=== PATIENT | female | born 1970 | race Caucasian/White ===

== ENCOUNTER 2017-01-19 13:24 | Emergency (ER) | payer OTHER ==
[~2017-01-19] VITALS: Ht 160 cm; Wt 100.0 kg
[2017-01-19] MEDS ORDERED: HYDR50TA94 PO (13:51)
[2017-01-19] MEDS ORDERED: CELE200C PO (13:51)
[2017-01-19] MEDS ORDERED: MONT10TA4 PO (13:51)
[2017-01-19] MEDS ORDERED: FLUO60TA PO (13:51)
[2017-01-19] MEDS ORDERED: AMIT25TA9 PO (13:51)
[2017-01-19] MEDS ORDERED: GABA300C5 PO (13:51)
[2017-01-19] MEDS ORDERED: LAMO100T PO (13:51)
[2017-01-19] MEDS ORDERED: ATOR20TA15 PO (13:51)
[2017-01-19 14:05] VITALS: BP 138/66; PULSE 81; RESP 18; TEMP 97.5; O2SAT 96
--- NOTE | 2017-01-19 14:36 | PD ---
History of Present Illness Chief Complaint: Psychiatric Symptoms Time Seen by Provider: 14:30 Travel History International Travel<30 Days: No Contact w/Intl Traveler<30days: No Known affected area: No Legal Status Legal Status: Suresh Act Suresh Act Signed By: Keith Boles History of Present Illness: This is a 46-year-old female with multiple medical problems and chronic mood swings, recently diagnosed as bipolar type II. Patient apparently overdosed on Xanax and muscle relaxant medication with thoughts of killing herself and possibly a suicide note. Patient does admit to the overdose but states she got stressed out with her boyfriend and her multiple medical issues. She admits to chronic symptoms of depression and intermittent suicidal thinking. She recently had to change psychiatrist because she moved. Her new psychiatrist put her on amitriptyline and she feels this has made her feel worse as well as exacerbating her irritable bowel syndrome and diverticulitis. She also reports a fatty liver for which she takes supplements. She has chronic back pain for which she was taking Cymbalta but has more recently been placed on Neurontin and Prozac. Her boyfriend remains intrusive and controlling and the combination of her medical issues, relationship issues and chronic mood disorder became overwhelming yesterday. This physician discussed possibly admitting the patient to the hospital but she understands that we'll only create a short term environment where they will change the medicines. She would like to return to her outpatient physician to change her medicines. PFSH Past Medical History Depression: Yes High Cholesterol: Yes Diabetes: Yes (DIET CONTROLLED) Patient Takes Glucophage: No Diverticulitis: Yes ?: Not Past Surgical History Tonsillectomy: Yes (ADENOIDECTOMY) Other Surgery: Yes (DEVIATED SEPTUM CORRECTION, LAP BAND PLACEMENT/REMOVAL) Psychiatric History Psychiatric History Hx Psychiatric Treatment: Previous psychiatric treatment by multiple psychiatrists. History of Inpatient Treatment: Yes Guns or firearms in home: No Social History Hx Alcohol Use: No Hx Tobacco Use: Yes Hx Substance Use: Yes Substance Use Type: Alcohol Hx of Substance Use Treatment: No Allergies-Medications (Allergen,Severity, Reaction): Coded Allergies: Penicillin (Verified Allergy, Unknown, 01/19/17) Sulfa (Verified Allergy, Unknown, 01/19/17) Reported Meds & Prescriptions Reported Meds & Active Scripts Active Reported Celebrex (Celecoxib) 200 Mg Cap 200 Mg PO BID Gabapentin 300 Mg Cap 300 Mg PO TID Montelukast (Montelukast Sodium) 10 Mg Tab 10 Mg PO HS Atorvastatin (Atorvastatin Calcium) 20 Mg Tab 20 Mg PO HS Fluoxetine (Fluoxetine HCl) 60 Mg Tab 60 Mg PO DAILY Lamotrigine 100 Mg Tab 100 Mg PO BID Hydroxyzine HCl 50 Mg Tab 100 Mg PO HS Amitriptyline (Amitriptyline HCl) 25 Mg Tab 25 Mg PO HS Review of Systems Except as stated in HPI: all other systems reviewed are Neg Exam Alert: Yes [place]: Person, Place, Date, Situation Mood: Anxious Affect: Restricted Speech: Clear, Logical Eye Contact: Normal Memory Intact: Immediate, Recent, Remote Insight/Judgement Impaired but adequate. MDM Medical Decision Making Medical Record Reviewed: Yes Assessment/Plan Patient to be released home per her request and Suresh act being lifted. Patient has been hospitalized since this overdose and is now willing to contract for safety until she sees her psychiatrist. She understands medication management is necessary to adequately address her pain, depression, anxiety, etc. She feels her depression and suicidal ideation are chronic problems and she simply became overwhelmed yesterday because of her relationship with the boyfriend. Despite the risks of allowing her to leave, least restrictive alternative applies and the patient will seek follow up treatment with her psychiatrist as well as her family doctor and specialty physicians as needed. Therefore the Suresh act was discontinued. Orders Psych Screen (01/19/17 13:40) Ed Urine Pregnancytest Poc (01/19/17 13:55) Results Vital Signs Date Time Temp Pulse Resp B/P Pulse Ox O2 Delivery O2 Flow Rate FiO2 01/19/17 14:05 97.5 81 18 138/66 96 Diagnosis Primary Impression: Adjustment disorder with mixed disturbance of emotions and conduct Additional Impression: History of depressed bipolar disorder Problem Qualifiers Mert Hernandez MD Jan 19, 2017 14:36
--- NOTE | 2017-01-19 15:39 | PD ---
HPI Chief Complaint: Psychiatric Symptoms Time Seen by Provider: 15:20 Travel History International Travel<30 days: No Contact w/Intl Traveler<30days: No Traveled to known affect area: No History of Present Illness HPI 46-year-old female presents under Suresh act for psychiatric evaluation. According to her paperwork the patient took multiple pills of Xanax and muscle relaxants. The suresh act was filled out on January 17. She was seen and admitted at [facility], medically cleared there and transferred here for psychiatric evaluation. She has already been seen by our psychiatrist Dr. Hernandez and he lifted her Suresh act. The patient is requesting to leave. She has no new medical complaints. [facility] Past Medical History Depression: Yes High Cholesterol: Yes Diabetes: Yes (DIET CONTROLLED) Patient Takes Glucophage: No Diverticulitis: Yes ?: Not Past Surgical History Tonsillectomy: Yes (ADENOIDECTOMY) Other Surgery: Yes (DEVIATED SEPTUM CORRECTION, LAP BAND PLACEMENT/REMOVAL) Social History Alcohol Use: No Tobacco Use: Yes Substance Use: Yes Allergies-Medications (Allergen,Severity, Reaction): Coded Allergies: Penicillin (Verified Allergy, Unknown, 01/19/17) Sulfa (Verified Allergy, Unknown, 01/19/17) Reported Meds & Prescriptions Reported Meds & Active Scripts Active Reported Celebrex (Celecoxib) 200 Mg Cap 200 Mg PO BID Gabapentin 300 Mg Cap 300 Mg PO TID Montelukast (Montelukast Sodium) 10 Mg Tab 10 Mg PO HS Atorvastatin (Atorvastatin Calcium) 20 Mg Tab 20 Mg PO HS Fluoxetine (Fluoxetine HCl) 60 Mg Tab 60 Mg PO DAILY Lamotrigine 100 Mg Tab 100 Mg PO BID Hydroxyzine HCl 50 Mg Tab 100 Mg PO HS Amitriptyline (Amitriptyline HCl) 25 Mg Tab 25 Mg PO HS Review of Systems Except as stated in HPI: all other systems reviewed are Neg Physical Exam Narrative GENERAL: Well-nourished female in no acute distress SKIN: Warm and dry. HEAD: Atraumatic. Normocephalic. EYES: Pupils equal and round. No scleral icterus. No injection or drainage. ENT: No nasal bleeding or discharge. Mucous membranes pink and moist. NECK: Trachea midline. No JVD. CARDIOVASCULAR: Regular rate and rhythm. No murmur appreciated. RESPIRATORY: No accessory muscle use. Clear to auscultation. Breath sounds equal bilaterally. GASTROINTESTINAL: Abdomen soft, non-tender, nondistended. Hepatic and splenic margins not palpable. MUSCULOSKELETAL: No obvious deformities. No clubbing. No cyanosis. No edema. NEUROLOGICAL: Awake and alert. No obvious cranial nerve deficits. Motor grossly within normal limits. Normal speech. PSYCHIATRIC: Appropriate mood and affect; insight and judgment normal. Data Data Last Documented VS Vital Signs Date Time Temp Pulse Resp B/P Pulse Ox O2 Delivery O2 Flow Rate FiO2 01/19/17 14:05 97.5 81 18 138/66 96 Orders Psych Screen (01/19/17 13:40) Ed Urine Pregnancytest Poc (01/19/17 13:55) MDM Medical Decision Making Medical Screen Exam Complete: Yes Emergency Medical Condition: Yes Medical Record Reviewed: Yes Differential Diagnosis Bipolar disorder, acute psychosis, major depressive disorder Narrative Course This patient was previously cleared medically at [facility], transferred here to see psychiatry, the suresh act has been lifted by psychiatry, no new medical complaints. Medically cleared. Diagnosis Primary Impression: Adjustment disorder with mixed disturbance of emotions and conduct Additional Impression: History of depressed bipolar disorder Patient Instructions: General Instructions, Stress (ED) Departure Forms: Tests/Procedures Additional Instructions: FOLLOW UP WITH YOUR CURRENT TREATMENT PROVIDERS Disposition: 01 DISCHARGE HOME Condition: Stable Dexter Elise Jan 19, 2017 15:39
== END 2017-01-19 16:08 | disposition home or self-care (01) ==
LOC: NEPJ 13:24
DX: F43.25 Adjustment disorder with mixed disturbance of emotions and conduct (principal); F31.9 Bipolar disorder, unspecified; Z72.0 Tobacco use
CPT/HCPCS: 99283

== ENCOUNTER 2018-01-13 05:31 | Inpatient (IN) | payer OTHER ==
[~2018-01-13] VITALS: Ht 162.6 cm; Wt 100.9 kg
[~2018-01-13 05:31] MED LIST: ALBU6.7H INH; ALPR0.5T3 PO; CELE200C PO; DESV100T PO; LAMO100T PO; MONT10TA4 PO; PANT40TA3 PO; TROS60CA2 PO
[2018-01-13] MEDS ORDERED: VANCOMYCIN 1 GM/200 ML PREMIX IV SCH (07:30)
[2018-01-13] MEDS ORDERED: APREPITANT 40 MG CAP PO SCH (07:30)
[2018-01-13] MEDS ORDERED: ONDANSETRON HCL 4 MG/2 ML VIAL IV PUSH SCH (07:30)
[2018-01-13] MEDS ORDERED: METOPROLOL TARTRATE 25 MG TAB PO PRN (07:30)
[2018-01-13] MEDS ORDERED: SODIUM CHLORID 0.9% 500 ML IV PRN (07:30)
[2018-01-13] MEDS ORDERED: ACETAMINOPHEN 1000 MG/100 ML 100 ML IV SCH (07:30)
[2018-01-13] MEDS ORDERED: LACTATED RINGER'S 1000 ML IV PRN (07:30)
[2018-01-13] MEDS ORDERED: CHLORHEXIDINE GLUCONATE 2 % 1 PACK (2 CLOTHS) TOPICAL PRN (07:30)
[2018-01-13] MEDS ORDERED: SCOPOLAMINE 1.5 MG PATCH T-DERMAL SCH (07:30)
[2018-01-13] MEDS ORDERED: POVIDONE IODINE 5% (ANTISEPSIS KIT) 4 APPLICATIONS EACH NARE PRN (07:30)
[2018-01-13] MEDS ORDERED: ONDANSETRON ODT 4 MG TAB ONE (07:34)
--- NOTE | 2018-01-13 09:59 | HHI.PR ---
Immediate Post Op Note Procedure Date: Jan 13, 2018 Pre Op Diagnosis: morbid obesity bmi 39, hx of lap band, band removal, hypercholesteremia, arthritis Post Op Diagnosis: same Surgeon: Chaz Ponce MD City Planner(s): see or sheet Procedure: lap vertical sleeve gastrectomy over 36F visigi bougreshma Findings: no leak Complications: none Specimen(s) removed: none Estimated blood loss: 5cc Anesthesia: General Drains: None Patient to: PACU Patient Condition: Good Chaz Ponce MD Jan 13, 2018 09:59
[2018-01-13] MEDS ORDERED: METHYLENE BLUE 10 MG/ML VIAL NG ONE (10:45)
[2018-01-13] MEDS ORDERED: BUPIVACAINE/EPINEPHRINE 0.25% PF 10 ML VIAL INFIL ONE (10:46)
[2018-01-13] MEDS ORDERED: ENALAPRILAT 1.25 MG/ML VIAL IV PUSH PRN (12:15)
[2018-01-13] MEDS ORDERED: ONDANSETRON ODT 4 MG TAB PO PRN (12:15)
[2018-01-13] MEDS ORDERED: SODIUM CHLORIDE 0.9% FLUSH 10 ML FLUSH IV FLUSH PRN (12:15)
[2018-01-13] MEDS: SODIUM CHLORIDE 0.9% FLUSH 10 ML FLUSH IV FLUSH SCH ×2 (12:15→20:39)
[2018-01-13] MEDS ORDERED: Post-op Orders (for Pharmacy) OTHER ONE (12:15)
[2018-01-13] MEDS: PANTOPRAZOLE SOD 40 MG DELAYED RELEASE TAB PO SCH (12:15)
[2018-01-13] MEDS ORDERED: ACETAMINOPHEN 325MG/HYDROcodone 7.5MG/15ML UDC PO PRN (12:15)
[2018-01-13] MEDS ORDERED: diphenhydrAMINE HCL ELIXIR 12.5 MG/5 ML CUP PO PRN (12:15)
[2018-01-13] MEDS ORDERED: diphenhydrAMINE HCL 50 MG/ML VIAL IV PUSH PRN (12:15)
[2018-01-13] MEDS ORDERED: MIDAZOLAM HCL 2 MG/2 ML VIAL ONE (12:37)
[2018-01-13] MEDS ORDERED: *RESP: ALBUTEROL 2.5 MG/3 ML NEB (PRN) PERIprocedural Use ONLY NEB ONE (12:42)
[2018-01-13] MEDS ORDERED: DO NOT ADM ANY ANTICOAGULANT DRUGS PRN (13:00)
[2018-01-13] MEDS: ACETAMINOPHEN 1000 MG/100 ML 100 ML IV SCH ×2 (13:00→20:43)
[2018-01-13] MEDS: D5-1/2 NS + KCL 20 MEQ INJ 1,000 ML IV SCH ×2 (14:00→22:33)
[2018-01-13] MEDS: METOCLOPRAMIDE HCL 10 MG/2 ML VIAL IV PUSH SCH ×2 (14:00→20:39)
--- NOTE | 2018-01-13 14:05 | MP ---
cc: Chaz Ponce MD DATE OF OPERATION: 01/13/2018 DATE OF PROCEDURE: 01/13/2018 PREOPERATIVE DIAGNOSES: Morbid obesity, body mass index of 38, arthritis, reflux, hypercholesterolemia, history of laparoscopic band placement and removal. POSTOPERATIVE DIAGNOSES: Morbid obesity, body mass index of 38, arthritis, reflux, hypercholesterolemia, history of laparoscopic band placement and removal. PROCEDURE PERFORMED: Laparoscopic sleeve gastrectomy over a 36-Bermud[place] ViSiGi bougie. SURGEON: Chaz Ponce MD NON EMERGENCY SERVICES AMBULANCE DRIVER: Kalia. ANESTHESIA: GETA. IV FLUIDS: See anesthesia sheet ESTIMATED BLOOD LOSS: 5 mL. DRAINS: None. COMPLICATIONS: None. FINDINGS: No leak. There is scarring at the GE junction due to previous band. SPECIMENS: None. INDICATION FOR PROCEDURE: The patient is a 47-year-old female who presents with morbid obesity, BMI of 38, multiple medical issues and comorbidities; the patient with a history of laparoscopic band placement and removal. The patient is here for weight loss surgery. DETAILS OF PROCEDURE: The patient was taken to the operating suite, placed in supine position. She was prepped and draped in the usual sterile fashion after induction of general endotracheal anesthesia. Brief timeout was done, stating the correct patient, procedure, surgical site. We were all in agreement with this. Attention first directed to 15 cm distal to the xiphoid midline. Local anesthetic was injected. A stab all incision was made. A 5 mm Optiview Visiport was done under direct vision to create pneumoperitoneum. Abdomen insufflated to 15 mm pneumoperitoneum. Several other trocars placed, one right upper quadrant 5 mm trocar, followed by a 15 mm right lower quadrant trocar and a 5 mm left upper quadrant trocar and a 5 mm left lower quadrant trocar. The patient was placed in reverse Trendelenburg and airplaned to the right. A liver retractor was placed. On cursory inspection, there was a couple adhesions that were lysed and noted to be against the falciform. Further examination of the GE junction noted some intermittent scarring and adherence at this point as well. Harmonic scalpel and EndoShears were used to dissect out the GE junction and mobilize the stomach from this. Once this was done, start of the sleeve gastrectomy was done first. Vasculature along the greater curvature of the stomach was toward 5 cm proximal to the pylorus, all the way at the angle of His. Angle of His was taken down bluntly and the posterior ligamentous attachments were . A 36-B[place]ud[place] ViSiGi bougie was advanced and placed down the suction and started 5 cm proximal to the pylorus and carried up to the angle of His. An Endo-MARY KAY stapler was used to transect the stomach approximately 80%. The first load was black load, followed by green load and gold loads. Again noted some scarring and minimal dilation of the proximal stomach was noted. Next, after this was complete, there was noted minimal bleeding from the proximal staple line and a clip was placed for hemostasis. Next, 120 mL of methylene blue was instilled in the sleeve gastrectomy without evidence of leaking. Next, the lower leaflet of the SeamGuard was approximated to the gastrocolic ligament using a 2-0 Vicryl suture. Next Evicel used to the staple line to assist in hemostasis. Next, the stomach was removed through the 15 port. The liver retractor was removed. The patient was flattened out. The 15 mm port was closed with a [id number] 0 Vicryl suture on a suture passer. The #5 ports were removed after pneumoperitoneum was removed. A 4-0 Monocryl used for subcuticular sutures to close the skin and sterile dressings and Mastisol placed. The patient tolerated the procedure well. No intraoperative complications. All lap, needle and instrument counts were correct at the end of the procedure. The patient was extubated and taken stable to PACU. MD JOSE Calvillo/TOMÁS , 01:26 PM , 02:04 PM
[2018-01-13] MEDS: ENOXAPARIN SODIUM 40 MG/0.4 ML SYRINGE SQ SCH (16:27)
[2018-01-13 20:00] VITALS: BP 110/57; PULSE 98; RESP 18; TEMP 98.1; O2SAT 92
--- NOTE | 2018-01-13 20:14 | RADRPT ---
EXAM DATE: 01/13/2018 8:12 PM EDT AGE/SEX: 47 years / Female INDICATIONS: Shortness of breath. CLINICAL DATA: This is the patient's initial encounter. Patient reports that signs and symptoms have been present for 1 day and indicates a pain score of 0/10. MEDICAL/SURGICAL HISTORY: None. None. COMPARISON: None. FINDINGS: A single AP view of the chest demonstrates the lungs to be symmetrically aerated without evidence of mass, infiltrate or effusion. The cardiomediastinal contours are unremarkable. Osseous structures a re intact. CONCLUSION: Negative examination. Electronically signed by: Efra Guerrero MD 01/13/2018 8:13 PM EDT
[2018-01-13] MEDS ORDERED: RESP: ALBUTEROL 2.5 MG/3 ML NEB (PRN) INH (20:15)
[2018-01-13] MEDS: VANCOMYCIN INJ 1,000 MG in SODIUM CHLOR 0.9% 250 ML INJ 250 ML IV SCH (22:34)
[2018-01-14] VITALS: BP 128/60; PULSE 81; RESP 17; TEMP 97.7; O2SAT 93
[2018-01-14] MEDS: ACETAMINOPHEN 325MG/HYDROcodone 7.5MG/15ML UDC PO PRN ×3 (00:32→12:28)
[2018-01-14] MEDS: ACETAMINOPHEN 1000 MG/100 ML 100 ML IV SCH ×2 (00:34→06:23)
[2018-01-14] MEDS: METOCLOPRAMIDE HCL 10 MG/2 ML VIAL IV PUSH SCH ×2 (02:05→09:10)
[2018-01-14 04:00] VITALS: BP 104/51; PULSE 103; RESP 17; TEMP 98.7; O2SAT 93
[2018-01-14] MEDS: D5-1/2 NS + KCL 20 MEQ INJ 1,000 ML IV SCH ×2 (06:18→14:00)
[2018-01-14 08:00] VITALS: BP 116/56; PULSE 102; RESP 18; TEMP 98; O2SAT 92
[2018-01-14 08:35] LABS: AUTOMATED NEUTROPHIL # 11.9 TH/MM3 (1.8-7.7); BASOPHIL # 0.1 TH/MM3 (0-0.2); BASOPHIL % 0.7 % (0.0-2.0); EOSINOPHIL # 0.1 TH/MM3 (0-0.4); EOSINOPHIL % 0.6 % (0.0-4.0); HEMATOCRIT 34.8 % (35.0-46.0); HEMOGLOBIN 11.5 GM/DL (11.6-15.3); LYMPH % 12.9 % (9.0-44.0); LYMPHOCYTE # 1.9 TH/MM3 (1.0-4.8); MEAN CELL VOLUME 96.1 FL (80.0-100.0); MEAN CORPUSCULAR HEMOGLOBIN 31.7 PG (27.0-34.0); MEAN PLATELET VOLUME 8.7 FL (7.0-11.0); MONO % 6.8 % (0.0-8.0); PLATELET COUNT 358 TH/MM3 (150-450); RED BLOOD COUNT 3.62 MIL/MM3 (4.00-5.30); RED CELL DISTRIBUTION WIDTH 14.2 % (11.6-17.2); WHITE BLOOD COUNT 15.1 TH/MM3 (4.0-11.0)
[2018-01-14 08:50] LABS: CALCIUM 8.3 MG/DL (8.5-10.1); CREATININE 0.78 MG/DL (0.50-1.00); MAGNESIUM 2.1 MG/DL (1.5-2.5)
[2018-01-14 09:07] VITALS: PULSE 93; O2SAT 97
[2018-01-14] MEDS: PANTOPRAZOLE SOD 40 MG DELAYED RELEASE TAB PO SCH ×2 (09:11→09:14)
[2018-01-14] MEDS: SODIUM CHLORIDE 0.9% FLUSH 10 ML FLUSH IV FLUSH SCH (09:15)
[2018-01-14] MEDS: VANCOMYCIN INJ 1,000 MG in SODIUM CHLOR 0.9% 250 ML INJ 250 ML IV SCH (09:18)
--- NOTE | 2018-01-14 10:26 | HHI.PR ---
Subjective Subjective Notes Had some SOB overnight, WBC elevated. No fevers. Tolerating PO fluids Objective Vitals/I&O Vital Signs Date Time Temp Pulse Resp B/P (MAP) Pulse Ox O2 Delivery O2 Flow Rate FiO2 01/14/18 09:07 93 97 01/14/18 08:00 98.0 18 116/56 (76) 01/13/18 20:30 Nasal Cannula 2.00 Labs Laboratory Tests Test 01/14/18 07:11 White Blood Count 15.1 Red Blood Count 3.62 Hemoglobin 11.5 Hematocrit 34.8 Mean Corpuscular Volume 96.1 Mean Corpuscular Hemoglobin 31.7 Mean Corpuscular Hemoglobin Concent 33.0 Red Cell Distribution Width 14.2 Platelet Count 358 Mean Platelet Volume 8.7 Neutrophils (%) (Auto) 79.0 Lymphocytes (%) (Auto) 12.9 Monocytes (%) (Auto) 6.8 Eosinophils (%) (Auto) 0.6 Basophils (%) (Auto) 0.7 Neutrophils # (Auto) 11.9 Lymphocytes # (Auto) 1.9 Monocytes # (Auto) 1.0 Eosinophils # (Auto) 0.1 Basophils # (Auto) 0.1 CBC Comment DIFF FINAL Differential Comment Blood Urea Nitrogen 5 Creatinine 0.78 Random Glucose 127 Calcium Level 8.3 Magnesium Level 2.1 Sodium Level 140 Potassium Level 3.6 Chloride Level 107 Carbon Dioxide Level 22.0 Anion Gap 11 Estimat Glomerular Filtration Rate 80 Radiology Last Impressions Chest X-Ray 01/13/18 0000 Signed Impressions: CONCLUSION: Negative examination. Abdomen: Post-op tenderness Extremities: Perfused Wound Wound : Wound Location: Abdomen Appearance: Clean & Dry A/P Assessment and Plan 47yo F POD#1 laparoscopic VSG -Repeat CBC this afternoon -Change neb treatments to scheduled -Increase fluids as tolerated -Continue with frequent ambulation Discharge Planning D/C home either later this evening or tomorrow Rip Salomon Jan 14, 2018 10:26
[2018-01-14] MEDS ORDERED: RESP: ALBUTEROL 2.5 MG/3 ML NEB (SCH) INH (10:30)
[2018-01-14 12:00] VITALS: BP 126/65; PULSE 108; RESP 18; TEMP 97.9; O2SAT 95
[2018-01-14] MEDS ORDERED: METOCLOPRAMIDE HCL 10 MG/2 ML VIAL IV PUSH PRN (12:15)
[2018-01-14] MEDS ORDERED: lamoTRIgine 100 MG TAB PO SCH (13:00)
[2018-01-14 14:23] LABS: HEMATOCRIT 36.4 % (35.0-46.0); MEAN CELL VOLUME 94.8 FL (80.0-100.0); MEAN CORPUSCULAR HEMOGLOBIN 31.3 PG (27.0-34.0); MEAN CORPUSCULAR HGB CONC 33.1 % (32.0-36.0); MEAN PLATELET VOLUME 8.7 FL (7.0-11.0); PLATELET COUNT 362 TH/MM3 (150-450); RED BLOOD COUNT 3.84 MIL/MM3 (4.00-5.30); WHITE BLOOD COUNT 14.2 TH/MM3 (4.0-11.0)
[2018-01-14] MEDS ORDERED: TOLTERODINE TARTRATE 4 MG CAP LA PO SCH (15:00)
[2018-01-14] MEDS: ENOXAPARIN SODIUM 40 MG/0.4 ML SYRINGE SQ SCH (15:29)
[2018-01-14 16:00] VITALS: BP 139/66; PULSE 92; RESP 18; TEMP 99.6; O2SAT 94
== END 2018-01-14 18:24 | disposition home or self-care (01) | DRG 621 ==
LOC: HSDI 05:31 → N07B 18:27
PROVIDERS: ADMIT Surgery; ATTEND Surgery
PROC: 0DB64Z3 Excision of Stomach, Percutaneous Endoscopic Approach, Vertical (ICD-10-PCS; principal; 2018-01-13 09:50)
DX: E66.01 Morbid (severe) obesity due to excess calories (principal); Z68.39 Body mass index [BMI] 39.0-39.9, adult; G62.9 Polyneuropathy, unspecified; E78.5 Hyperlipidemia, unspecified; D72.829 Elevated white blood cell count, unspecified; K21.9 Gastro-esophageal reflux disease without esophagitis; M19.90 Unspecified osteoarthritis, unspecified site; E78.00 Pure hypercholesterolemia, unspecified; R06.02 Shortness of breath; F32.9 Major depressive disorder, single episode, unspecified; F41.9 Anxiety disorder, unspecified
CPT/HCPCS: 71045; 80048; 82948; 83735; 85025; 85027; 94150; 94640; 94664; J0131; J1650; J2250; J2765; J3010; J3370; J3480; J7050; J7120; J7613; J8501